=== PATIENT | female | born 1960 | race Caucasian/White ===

== ENCOUNTER 2018-06-20 13:13 | Emergency (ER) | payer MEDICAID ==
[~2018-06-20] VITALS: Ht 170.2 cm; Wt 77.1 kg
[2018-06-20 13:17] VITALS: BP_SYST 107
--- NOTE | 2018-06-20 13:21 | NUR ---
Ambulatory to bed 6 accompanied by daughter.
[2018-06-20] MEDS ORDERED: BELLADONNA ALKALOIDS/PHENOBARB 5 ML UDC PO ONE (14:00)
[2018-06-20] MEDS ORDERED: MAG-AL HYDROX/SIMETH 30 ML UDC PO ONE (14:00)
[2018-06-20] MEDS ORDERED: LORazepam 2 MG/ML VIAL (FOR ER USE) IM ONE (14:00)
[2018-06-20] MEDS ORDERED: LIDOCAINE VISCOUS 2%, 15 ML UDC MM ONE (14:00)
[2018-06-20 15:28] LABS: CALCIUM 9.4 mg/dL (8.4-11.0); CREATININE 0.7 mg/dL (0.55-1.30); POTASSIUM 4.1 mmol/L (3.5-5.1)
[2018-06-20 15:32] LABS: ALBUMIN 4.1 g/dL (3.4-4.8); TOTAL BILIRUBIN 0.6 mg/dL (0.0-1.0)
[2018-06-20 15:33] LABS: INR 0.9 (0.8-1.2); PROTHROMBIN TIME 9.7 SECS (9.5-12.5)
[2018-06-20 15:35] LABS: BASOPHILS % (AUTO) 0.2 % (0.0-2.0); EOSINOPHILS % (AUTO) 0.2 % (0.0-4.0); HEMATOCRIT 45.8 % (36-48); HEMOGLOBIN 15.2 g/dL (12.0-16.0); LYMPHOCYTES # (AUTO) 0.6 K/uL (1.0-5.5); LYMPHOCYTES % (AUTO) 5.5 % (20.5-51.5); MEAN CORPUSCULAR HEMOGLOBIN 30 pg (27-31); MEAN CORPUSCULAR HGB CONC 33 % (32-36); MEAN CORPUSCULAR VOLUME 90 fL (79.0-98.0); MONOCYTES # (AUTO) 0.3 K/uL (0.0-1.0); MONOCYTES % (AUTO) 2.5 % (1.7-9.3); NEUTROPHILS # (AUTO) 10.9 K/uL (1.8-7.7); NEUTROPHILS % (AUTO) 91.6 % (40.0-70.0); PLATELET COUNT (AUTO) 306 K/uL (130-430); RED BLOOD CELL COUNT(AUTO) 5.09 MIL/uL (4.2-6.2); RED CELL DISTRIBUTION WIDTH 12.2 % (9.0-15.0); WHITE BLOOD COUNT (AUTO) 11.8 K/uL (4.8-10.8)
[2018-06-20] MEDS ORDERED: ONDANSETRON HCL 4 MG/2 ML VIAL ONE (16:25)
== END 2018-06-20 17:45 | disposition home or self-care (01) ==
LOC: SED 13:13
DX: R10.13 Epigastric pain (principal); F43.0 Acute stress reaction; R03.0 Elevated blood-pressure reading, without diagnosis of hypertension
CPT/HCPCS: 36415; 71045; 76700; 80053; 82550; 83690; 84484; 85025; 85610; 85730; 93005; 96372; 99284; J2001; J2060; J2405; 99283